=== PATIENT | male | born 2000 | race Two or more races ===

== ENCOUNTER 2018-07-13 19:44 | Emergency (ER) | payer MEDICAID, OTHER ==
[~2018-07-13] VITALS: Ht 180.3 cm; Wt 100.0 kg
[~2018-07-13 19:44] MED LIST: ALBU8.5H4 IH; NO HOME MEDS
[2018-07-13 19:54] VITALS: BP 132/79
[2018-07-13] MEDS ORDERED: CEPH-572 PO (21:59)
[2018-07-13] MEDS ORDERED: SULF1TAB49 PO (21:59)
[2018-07-13] MEDS ORDERED: sulfamethoxazole/trimethoprim DS (800/160mg) tablet PO ONE (22:00)
[2018-07-13] MEDS ORDERED: cephalexin 250mg capsule PO ONE (22:00)
== END 2018-07-13 22:10 | disposition home or self-care (01) ==
LOC: ER 19:45
DX: L02.414 Cutaneous abscess of left upper limb (principal); L02.415 Cutaneous abscess of right lower limb; Z79.899 Other long term (current) drug therapy
CPT/HCPCS: 99283

== ENCOUNTER 2018-07-21 12:02 | Emergency (ER) | payer MEDICAID, OTHER ==
[~2018-07-21] VITALS: Ht 185.4 cm; Wt 100.0 kg
[~2018-07-21 12:02] MED LIST changes: +CEPH-572 PO; +SULF1TAB49 PO
[2018-07-21] MEDS ORDERED: SULF1TAB49 PO (12:25)
[2018-07-21 12:38] VITALS: BP 115/68
== END 2018-07-21 12:39 | disposition home or self-care (01) ==
LOC: ER 12:03
DX: L02.414 Cutaneous abscess of left upper limb (principal); A49.02 Methicillin resistant Staphylococcus aureus infection, unspecified site
CPT/HCPCS: 99283

== ENCOUNTER 2019-01-23 11:09 | Emergency (ER) | payer MEDICAID, OTHER ==
[~2019-01-23] VITALS: Ht 177.8 cm; Wt 100.0 kg
[~2019-01-23 11:09] MED LIST changes: -CEPH-572 PO; -SULF1TAB49 PO
[2019-01-23 11:30] VITALS: BP 150/88
== END 2019-01-23 13:01 | disposition home or self-care (01) ==
LOC: ER 11:09
DX: S92.355A Nondisplaced fracture of fifth metatarsal bone, left foot, initial encounter for closed fracture (principal); X50.1XXA Overexertion from prolonged static or awkward postures, initial encounter; Y93.89 Activity, other specified; Y92.69 Other specified industrial and construction area as the place of occurrence of the external cause; Y99.9 Unspecified external cause status
CPT/HCPCS: 29515; 73630; 99283

== ENCOUNTER 2022-10-12 09:14 | Emergency (ER) | payer BC, OTHER ==
[~2022-10-12] VITALS: Ht 177.8 cm; Wt 100.0 kg
[2022-10-12 09:16] VITALS: BP 148/97
[2022-10-12] MEDS ORDERED: LIDOcaine 1% 30ml preserv. free vial IJ ONE (10:10)
[2022-10-12] MEDS ORDERED: SULF1TAB49 PO (10:57)
[2022-10-12] MEDS ORDERED: HYDR-3973 PO (11:37)
--- NOTE | 2022-10-15 09:18 | NUR ---
PT CALLED REGARDING LAB WORK FROM VISIT ON 10/12/22. PT RETURNED CALL AND WAS INFORMED THAT THE RX HE WAS GIVENN WAS RESISTANT TO THE BACTERIA CULTURED. PT INSTRUCTED TO STOP TAKING THE BACTRIM AND TO BEGIN CLINDAMYCIN. PT REQUESTED THAT THE NEW RX BE SENT TO [facility] [place]. CLINDAMYCIN 300MG; 1 PO QID x10 DAYS[facility] #40, NO REFILLS WAS CALLED INTO [facility] [place] REQUESTED
== END 2022-10-12 11:51 | disposition home or self-care (01) ==
LOC: ER 09:15
DX: S60.451A Superficial foreign body of left index finger, initial encounter (principal); Z79.899 Other long term (current) drug therapy; X58.XXXA Exposure to other specified factors, initial encounter; Y93.89 Activity, other specified; Y92.89 Other specified places as the place of occurrence of the external cause; Y99.8 Other external cause status
CPT/HCPCS: 10120; 73140; 87070; 87077; 87186; 99285